=== PATIENT | male | born 1975 | race Caucasian/White ===

== ENCOUNTER 2024-08-08 14:12 | Outpatient (REF) | payer OTHER, SELFPAY ==
[2024-08-08 15:44] LABS: Anion Gap 14 (12-20); Blood Urea Nitrogen 22 mg/dL (9-16); Calcium 10.1 mg/dL (8.4-10.2); Carbon Dioxide 28 mmol/L (22-29); Chloride 103 mmol/L (96-108); Estimated Glomerular Filt Rate > 60; Glucose Random 140 mg/dL (60-115); Potassium 4.4 mmol/L (3.3-5.1); Sodium 141 mmol/L (135-145)
[2024-08-08 16:04] LABS: TSH reflex Free T4 1.15 uIU/mL (0.32-4.0)
[2024-08-08 16:18] LABS: Folate 14.2 ng/mL (> or = 4.0); Vitamin B12 635 pg/mL (200-900)
== END 2024-08-08 14:13 | disposition home or self-care (01) ==
LOC: HO.LAB 14:12
PROVIDERS: Visit Provider Psychiatry & Neurology Neurology
DX: G31.84 Mild cognitive impairment of uncertain or unknown etiology (principal)
CPT/HCPCS: 36415; 80048; 82607; 82746; 84443

== ENCOUNTER 2024-09-29 14:50 | Outpatient (REF) | payer OTHER, SELFPAY ==
--- NOTE | ~2024-09-29 | CT_ITS ---
CLINICAL HISTORY: [facility] CT head without contrast Comparison: None Findings: No intra-axial mass, midline shift, hydrocephalus, or acute hemorrhage. No significant atrophy-like change or white matter disease. The visualized paranasal sinuses and mastoid air cells are normal. The orbits are within normal limits. No skull fracture. IMPRESSION: 1. No acute intracranial findings This document has been electronically signed by: Dwaine Alfaro MD on 10/02/2024 12:49:56
== END 2024-09-29 14:51 | disposition home or self-care (01) ==
LOC: HO.CT 14:50
PROVIDERS: Visit Provider Psychiatry & Neurology Neurology
DX: G31.84 Mild cognitive impairment of uncertain or unknown etiology (principal)
CPT/HCPCS: 70450

== ENCOUNTER → 2024-09-29 14:53 | Outpatient (BNV) | payer OTHER, SELFPAY | PROVIDERS: Visit Provider Radiology Vascular & Interventional Radiology | DX: G31.84 Mild cognitive impairment of uncertain or unknown etiology (principal) | CPT/HCPCS: 70450 ==